=== PATIENT | female | born 1975 | race Caucasian/White ===

== ENCOUNTER 2016-09-18 15:19 | Emergency (ER) | payer OTHER ==
[~2016-09-18] VITALS: Ht 154.9 cm; Wt 112.9 kg
[~2016-09-18 15:19] MED LIST: PREDNISONE20 MG PO
[2016-09-18 15:41] LABS: HEMATOCRIT 42.2 % (36.0-46.0); MCH 29.8 PG (29.0-34.0); MCHC 32.5 G/DL (30.0-36.0); MCV 91.7 FL (83-99); MEAN PLAT.VOLUME 9.6 uM^3 (9.5-12.4); PLATELET COUNT 273 K/uL (156-360); RBC DIS.WIDTH-CV 12.1 % (11.8-14.6); RBC DIS.WIDTH-SD 40.8 % (39-53)
[2016-09-18 15:48] LABS: CHLORIDE 106 mEq/L (99-109); POTASSIUM 4.1 mEq/L (3.7-5.4); SODIUM 141 mEq/L (136-147)
[2016-09-18 15:50] LABS: GLUCOSE 112 mg/dL (70-99)
[2016-09-18 15:51] LABS: ANION GAP 10 MEQ/L (2-14); D-DIMER ELISA 0.33 mg/L FEU (< 0.57)
[2016-09-18 15:54] LABS: GFR ESTIMATE (CALCULATED) > 59 mL/min/
[2016-09-18 15:55] LABS: UREA NITROGEN (BUN) 13 mg/dL (9-23)
[2016-09-18 16:00] LABS: TROP-I INTERPRETATION NEGATIVE; TROPONIN-I < 0.01 ng/mL (0.0-0.30)
[2016-09-18 18:20] VITALS: BP 114/65
== END 2016-09-18 18:20 | disposition home or self-care (01) ==
LOC: EME 15:19
DX: M94.0 Chondrocostal junction syndrome [Tietze] (principal); Z86.718 Personal history of other venous thrombosis and embolism; Z86.711 Personal history of pulmonary embolism
CPT/HCPCS: 71020; 80048; 84484; 85027; 85379; 93005; 99281; 99283